=== PATIENT | female | born 1980 | race Caucasian/White ===

== ENCOUNTER 2017-01-07 14:40 | Inpatient (IN) | payer BC ==
[~2017-01-07] VITALS: Ht 175.3 cm; Wt 93.5 kg
--- NOTE | ~2017-01-07 | PN ---
PATIENT'S NAME: IVY RODRIGUEZ [facility] AGE: 36 Y [address] ROOM: [place] [address] LOCATION: GPED ADMIT DATE: 01/07/2017 Progress Notes DISCHARGE DATE: FAMILY PHYSICIAN: MIAH BAUTISTA MD ATTENDING PHYSICIAN: Zia VERDE DATE OF SERVICE: 01/09/2017 ADDENDUM: This patient has been receiving Reglan without difficulty, and she had an extrapyramidal side effect where she had some lateralizing signs which quickly resolved. She was seen by the hospitalist as well where she is entirely normal at this point, and her Reglan has been discontinued. She had been receiving it for several days without untoward reaction. She has been advised not to take this medication again. MD HUONG ELLSWORTH/juana /[id number] d: 01/09/172038 t: 01/14/17 1824, PROGRESS NOTES
--- NOTE | ~2017-01-07 | ER ---
PATIENT'S NAME: IVY RODRIGUEZ [facility] AGE: 36 Y [address] ROOM: [id number] [place], [place] [address] LOCATION: GPED ADMIT DATE: 01/07/2017 ER/Outpatient Report DISCHARGE DATE: FAMILY PHYSICIAN: MIAH BAUTISTA MD ATTENDING PHYSICIAN: Zia GROVES Time of Arrival: 1451 hours. Time of Evaluation/Exam: 1451 hours. CHIEF COMPLAINT: Right lower quadrant abdominal pain. HISTORY OF PRESENT ILLNESS: The patient states she woke up early this morning with right lower quadrant abdominal pain. States that it did wake her up. She reports that she has had problems with cold, cough, and congestion for the past week and was planning to go to the [facility] to have that checked, and had her provider check her abdomen at the same time. She said they did do a bunch of laboratory work and then sent her here for a CT scan. Dr. Groves, the surgeon did call the ER to let us know that she was coming and he was going to see her in the ER. She reports she has been nauseated, has not vomited. Has had chills. Denies any urine frequency or pain with urination. Reports she had a normal bowel movement this morning. Her last period was last week. She states she does have a Mirena. She describes the pain as being a crampy type pain. It is constant, worse when she is up and moving around. ALLERGIES: NO KNOWN ALLERGIES. MEDICATIONS: Levothyroxine. PAST MEDICAL HISTORY: Hypothyroidism. PAST SURGICAL HISTORY: Tonsillectomy. SOCIAL HISTORY: Lives at home with her and children. Denies use of tobacco, alcohol, or drugs. REVIEW OF SYSTEMS: All negative other than those mentioned in the HPI. PATIENT'S NAME: IVY RODRIGUEZ [facility] AGE: 36 Y [address] ROOM: [address] [place], [place] [address] LOCATION: GPED ADMIT DATE: 01/07/2017 ER/Outpatient Report DISCHARGE DATE: FAMILY PHYSICIAN: MIAH BAUTISTA MD ATTENDING PHYSICIAN: Zia GROVES PHYSICAL EXAMINATION: VITAL SIGNS: She weighed 93.5 kg. Blood pressure is 137/75, pulse of 86, respirations are 16, temperature of 99.3, tympanic, and O2 saturation 100% on room air. GENERAL APPEARANCE: She is awake, alert, and oriented x4. SKIN: [place], warm, and dry. RESPIRATORY: Respirations are even and nonlabored. Lung sounds are clear throughout. HEART: Regular rate and rhythm. ABDOMEN: Soft and nondistended. Bowel sounds are present. She is very tender in the right lower quadrant. Some mild tenderness of the umbilical area. EXTREMITIES: She walked in with a steady even gait. EMERGENCY DEPARTMENT COURSE: Dr. Groves did come and evaluate the patient. He is going to admit her for observation. IMPRESSION: Right lower quadrant abdominal pain. PLAN: The patient will be placed on observation for the care of Dr. Groves. She is aware of the plan and is in agreement to it. RIKY WASHINGTON APRN FOR DO HUMBERTO HERNANDEZ/juana /[id number] d: 01/07/17 2321 t: 01/15/17 0903, OUTPATIENT REPORT
--- NOTE | ~2017-01-07 | PN ---
PATIENT'S NAME: IVY RODRIGUEZ [facility] AGE: 36 Y [address] ROOM: [place] [address] LOCATION: GPED ADMIT DATE: 01/07/2017 Progress Notes DISCHARGE DATE: FAMILY PHYSICIAN: MIAH BAUTISTA MD ATTENDING PHYSICIAN: Zia VERDE DATE OF SERVICE: 01/08/2017 This patient had a retrocecal appendicitis. She had an appendectomy today. She is doing generally stable. She is due to void. She is afebrile. Vital signs stable. Her abdomen is soft, quiet. Dressing dry and intact. She is stable and due to void. MD HUONG ELLSWORTH/elizabethl /[id number] d: 01/08/17 1257 t: 01/14/17 1818, PROGRESS NOTES
--- NOTE | ~2017-01-07 | CON ---
PATIENT'S NAME: IVY RODRIGUEZ [facility] AGE: 36 Y [address] ROOM: [place] [address] LOCATION: GPED ADMIT DATE: 01/07/2017 Consultation DISCHARGE DATE: FAMILY PHYSICIAN: MIAH BAUTISTA MD ATTENDING PHYSICIAN: Zia GROVES DATE OF CONSULTATION: 01/09/2017 REFERRING PHYSICIAN: Zia Groves MD CONSULTING PHYSICIAN: Dr. Topete. REASON FOR THE CONSULTATION: Rapid response. HISTORY OF PRESENT ILLNESS: The patient is a previously healthy 36-year-old female who has undergone an appendectomy yesterday. She was doing okay until a few hours ago. She was noted to have some abnormal lip movements as well as garbled speech on the right. She also had some difficulty controlling her oral intake and had leakage of fluid from her right-side. She also endorses some symptomatic discomfort on the right-side of her face, which has now resolved. At this point, she feels fine aside from just a little bit of excitement from the rapid response. She denies chest pain, shortness of breath, nausea, vomiting, palpitations, or diaphoresis, but does have some tremor due to the rapid response. REVIEW OF SYSTEMS: All systems have been reviewed and are negative aside for pertinent positives mentioned above. PAST MEDICAL HISTORY: Hypothyroidism. CURRENT MEDICATIONS: Levothyroxine. SOCIAL HISTORY: The patient denies any toxic habits. FAMILY HISTORY: The patient does not provide any contributing family history. HOME MEDICATIONS: PATIENT'S NAME: IVY RODRIGUEZ [facility] AGE: 36 Y [address] ROOM: [place] [address] LOCATION: GPED ADMIT DATE: 01/07/2017 Consultation DISCHARGE DATE: FAMILY PHYSICIAN: MIAH BAUTISTA MD ATTENDING PHYSICIAN: Zia GROVES Levothyroxine, at this point, she is also getting regular doses of Reglan, and notably did get a dose of Reglan before her symptoms precipitated. PHYSICAL EXAMINATION: VITAL SIGNS: At this point, her vital signs, blood pressure 150/100, heart rate is 86, satting 96% on room air, afebrile, and respirations are 16. GENERAL: Appears as a well-developed, well-nourished, young female, in no significant distress, but does have some tremor from the excitement. NEUROLOGIC: A detailed neurological exam shows absolutely no focal abnormalities. Subjectively, the patient reports that the symptoms have resolved. EYES: Exam shows pupils are equal and reactive to light. LYMPHATIC: Exam shows no cervical lymphadenopathy. ENDOCRINE: Exam shows no thyromegaly. LUNGS: Clear to auscultation. HEART: Rate is regular. No appreciable murmurs, gallops, or rubs. GI: Exam is deferred. : Exam is deferred. VASCULAR: Exam reveals 2+ pedal pulses. SKIN: Warm and dry. PSYCHIATRIC: Reveals slightly excited mood, but appropriate affect and cognition. LABORATORY DATA: Lab results have been reviewed and are unremarkable. IMPRESSION/RECOMMENDATIONS: This is likely an extrapyramidal reaction to Reglan. I am not very concerned about possibility of a cerebrovascular accident given absence of risk factors and a known inciting etiology for this episode. Nevertheless, we will put her on neuro checks for next 8 hours to make sure that the symptoms do not recur. If they do recur, we will do a CAT scan of her head to rule out possible neurologic event. At this point, she would not be a candidate for tPA regardless due to recent surgery. At this point, she is quite anxious and we will give her a small dose of Xanax to help her calm down. Additional management as per primary team. Time dedicated to this patient's consult is 25 minutes. LINA TOPETE MD PATIENT'S NAME: IVY RODRIGUEZ [facility] AGE: 36 Y [address] ROOM: [place] [address] LOCATION: GPED ADMIT DATE: 01/07/2017 Consultation DISCHARGE DATE: FAMILY PHYSICIAN: MIAH BAUTISTA MD ATTENDING PHYSICIAN: Zia GROVES/juana /[id number] d: 01/10/17 0030 t: 01/27/17 0456, CONSULTATION REPORT
--- NOTE | ~2017-01-07 | DS ---
PATIENT'S NAME: JAZ HOLLINGSWORTH [facility] AGE: 36 Y [address] ROOM: [address] [place] [address] LOCATION: GPED ADMIT DATE: 01/07/2017 Discharge Summary DISCHARGE DATE: 01/10/2017 FAMILY PHYSICIAN: Adrian Aguiar MD ATTENDING PHYSICIAN: Zia Groves DIAGNOSIS: Retrocecal appendicitis. SUMMARY: Jaz Hollingsworth is a 36-year-old female, who had a 5-day history of some discomfort in her abdomen worse over the past 2 days. The patient was evaluated with CBC that showed leukocytosis with white blood cell count of 13.4. CT scan showed a borderline dilated appendix up to 9 mm with no contiguous or adjacent inflammation or fluid. Dr. Groves evaluated the patient and recommended observation. She was admitted, kept n.p.o. IV fluids were started. On the morning of January 08, 2017, the patient's pain seemed the same and on examination, he noted localized peritoneal signs in the right lower quadrant. A permit was obtained for an open appendectomy. Mefoxin 2 g IV was given preoperatively. The patient was taken to the operating room for an appendectomy. Please see Dr. Groves's procedure note for specifics. Postoperatively, the patient was allowed sips of water. Dilaudid and Toradol were ordered for pain. Reglan was ordered every 6 hours. The patient continued on Mefoxin for 24 hours. Lovenox was ordered for DVT prophylaxis. The patient was allowed to be up to the chair with assistance. The patient experienced some urinary retention and a Fortune catheter was placed. The patient was advanced a clear liquid diet. Tylenol was ordered for pain along with [place]. Fortune catheter was removed early this morning and the patient is voiding well. She is tolerating diet. She is passing gas. Vital signs are stable. The patient wants to go home. Arrangements are being made for the patient to discharge home today. Instructions include no restrictions on diet, no vigorous activity, or lifting greater than 20 pounds until she is seen back by Dr. Charles in 10-14 days. She was instructed to let us know if she has fever, increased abdominal pain, or diarrhea. DISCHARGE MEDICATIONS: 1. Tylenol 325-650 mg p.o. q.3 hours p.r.n. pain. 2. She was started on Levaquin 500 mg p.o. daily x10 days prior to admission and she can complete this for sinus infection. 3. Levothroid 50 mcg p.o. daily. 4. Multivitamin 1 tablet p.o. q.h.s. 5. Zyrtec 10 mg p.o. daily. 6. Flonase 1 spray in the nose daily p.r.n. 7. Prescription was written for [place] 5/325 one to two p.o. q.4 hours p.r.n. pain, dispensing 30 with no refills. For specifics on day-to-day care, please refer to the hospital chart. PATIENT'S NAME: JAZ HOLLINGSWORTH [facility] AGE: 36 Y [address] ROOM: [address] [address] LOCATION: GPED ADMIT DATE: 01/07/2017 Discharge Summary DISCHARGE DATE: 01/10/2017 FAMILY PHYSICIAN: Adrian Aguiar MD ATTENDING PHYSICIAN: Zia Groves LAYA WATSON PA-C FOR MD TRACI SIBLEYK/juana /[id number] d: 01/11/17 0502 t: 01/22/17 1454, DISCHARGE SUMMARY
--- NOTE | ~2017-01-07 | OR ---
PATIENT'S NAME: IVY RODRIGUEZ [facility] AGE: 36 Y [address] ROOM: [address] [address] LOCATION: GPED ADMIT DATE: 01/07/2017 OR/Procedure Report DISCHARGE DATE: FAMILY PHYSICIAN: MIAH BAUTISTA MD ATTENDING PHYSICIAN: Zia GROVES SURGEON: Zia Groves MD PATIENT CARE DIRECTOR: DATE OF PROCEDURE: 01/08/2017 PREOPERATIVE DIAGNOSIS: Abdominal pain, likely appendicitis, retrocecal. POSTOPERATIVE DIAGNOSIS: Retrocecal appendicitis. PROCEDURES PERFORMED: 1. Exploration. 2. Appendectomy. ANESTHESIA: General endotracheal. INDICATIONS FOR OPERATION: This is a patient who presented yesterday from the clinic with a several-day history of diffuse abdominal pain which seemed to localize in the right lower quadrant. She had a low-grade fever and leukocytosis, but her CAT scan was indeterminate in that it was a possible borderline dilated appendix, but there was no stranding, inflammatory changes, etc. She was observed overnight where, on reexamination, she had localized peritoneal signs in the right lower quadrant. She was given perioperative parenteral antibiotics and sequential compression boots and taken to the operating room. DESCRIPTION OF PROCEDURE: The patient was brought to the operating room. After satisfactory general endotracheal anesthesia, her abdomen was prepped and draped in the usual sterile fashion. 0.5% Marcaine with epinephrine was infiltrated for better postoperative analgesia. Cody-Bryan incision was made. Skin and subcutaneous tissue were divided. Hemostasis throughout the procedure was obtained with electrocautery and tie ligation with heavy silk. External oblique was opened in the direction of its fibers. The internal oblique, transversus abdominis, and transversalis fascia were split in a muscle-splitting approach. The peritoneum was then opened. The cecum was delivered. It was a retrocecal appendicitis. Once mobilizing the retrocecal appendix, the mesoappendix was clamped, divided, and tied with heavy silk. The appendiceal artery was individually clamped, divided, and tied with heavy silk. A pursestring suture of 3-0 silk was placed at the base of the appendix in the cecum. The appendix was crushed with a crush clamp and amputated. Its tip was touched with cautery to prevent mucocele. The appendiceal stump was invaginated. The pursestring suture was secured. Several interrupted 3-0 PATIENT'S NAME: IVY RODRIGUEZ [facility] AGE: 36 Y [address] ROOM: [address] [place] [address] LOCATION: [facility] ADMIT DATE: 01/07/2017 OR/Procedure Report DISCHARGE DATE: FAMILY PHYSICIAN: MIAH BAUTISTA MD ATTENDING PHYSICIAN: Zia GROVES intestinal sutures were placed to secure the area. At this point, the small bowel was run. There was no Meckel diverticulum. Also, the right ovary was examined as well as the fallopian tube and the uterus by visualization and were satisfactory. Copious irrigation with antibiotic irrigant was performed. The intra-abdominal contents were placed back into their anatomical positions. The abdomen was then closed in the following fashion: The peritoneum was closed with a running 0 Vicryl suture. The transversus abdominis, transversalis fascia, and internal oblique were gently reapproximated with 0 Vicryl suture. The external oblique was closed with an 0 Vicryl suture. Soft tissues were irrigated and gently reapproximated with interrupted 3-0 Vicryl sutures. Skin was closed with 4-0 Vicryl subcuticular closure. Steri-Strips, Telfa pads, and pressure dressing were applied to the wound. The patient tolerated the procedure satisfactorily. ESTIMATED BLOOD LOSS: Minimal. MD HUONG ELLSWORTH/juana /[id number] d: 01/08/17 1149 t: 01/08/17 1352, OPERATIVE SUMMARY
--- NOTE | ~2017-01-07 | HP ---
PATIENT'S NAME: IVY RODRIGUEZ [facility] AGE: 36 Y [address] ROOM: [place] [address] LOCATION: [facility] ADMIT DATE: 01/07/2017 History & Physical DISCHARGE DATE: FAMILY PHYSICIAN: Adrian Aguiar MD ATTENDING PHYSICIAN: Warren Gandara DATE OF SERVICE: HISTORY OF PRESENT ILLNESS: This is a 36-year-old female whom I was called by [facility] in the [facility] where she has had 5 days of discomfort in her abdomen, but primarily 2 days which were most marked. She said she had pain in both lower quadrants, more so on the right side. She has had emesis, but without productivity. She said she has had cold sweats, but no definitive fever. She has had no diarrhea. Her last menstrual period was recently. She is passing gas. She had a normal bowel movement this morning. She is not anorexic. She has no genitourinary symptomatology. She has been fighting a cold with congestion. She was sent for labs by Any, and lab results showed leukocytosis of 13.4 with a left shift. Her BMP was generally unremarkable. Her urinalysis showed trace protein, 5 to 10 white cells, 5 to 10 epithelial cells, otherwise unremarkable. She had a CT scan, which I reviewed personally with the radiologist, which showed a very borderline dilated appendix up to 9 mm, but no contiguous or adjacent inflammation or fluid collection at all. No streaking at the mesentery. They concluded they could not exclude early appendicitis, but it is borderline dilated. MEDICATIONS: Include Thyroid for hypothyroidism. ALLERGIES: NONE. OPERATIONS: Tonsillectomy. MEDICAL PROBLEMS: Hypothyroid. REVIEW OF SYSTEMS: Significant for emesis without production, abdominal pain, and mild decreased appetite. Genitourinary review of systems does not reveal any significant findings. The remainder of the review of systems, 14-point, is surgically noncontributory. FAMILY HISTORY: PATIENT'S NAME: IVY RODRIGUEZ [facility] AGE: 36 Y [address] ROOM: [place] [address] LOCATION: [facility] ADMIT DATE: 01/07/2017 History & Physical DISCHARGE DATE: FAMILY PHYSICIAN: Adrian Aguiar MD ATTENDING PHYSICIAN: Nichol,Warren J Surgically noncontributory. SOCIAL HISTORY: Surgically noncontributory. She does not smoke cigarettes. PHYSICAL EXAMINATION: VITAL SIGNS: She has a low-grade fever of 99. Vital signs are stable. GENERAL: She does not look toxic. SKIN: Turgor is normal. HEENT: Unremarkable. CHEST: Clear bilateral breath sounds. HEART: No murmurs or gallops. ABDOMEN: Soft. She has mild tenderness to moderate and deep palpation in the right lower quadrant. No rebound. No masses or organomegaly. Bowel sounds are present. No hernias. EXTREMITIES: Perfused. IMPRESSION: Possible early appendicitis. PLAN: Intravenous hydration. Close observation. Her subsequent management will be determined by her clinical course. MD HUONG ELLSWORTH/juana /[id number] D: [id number] T: [id number] HISTORY & PHYSICAL
--- NOTE | ~2017-01-07 | PN ---
PATIENT'S NAME: IVY RODRIGUEZ [facility] AGE: 36 Y [address] ROOM: [address] [place] [id number] LOCATION: GPED ADMIT DATE: 01/07/2017 Progress Notes DISCHARGE DATE: FAMILY PHYSICIAN: MIAH BAUTISTA MD ATTENDING PHYSICIAN: Zia VERDE DATE OF SERVICE: 01/09/2017 HISTORY OF PRESENT ILLNESS: This patient underwent an appendectomy for retrocecal appendicitis. She is doing well. She did have overflow incontinence and has a Fortune catheter in. Otherwise, her laboratory values are reasonable today. She does have slight leukocytosis, which is not surprising. H and H are otherwise unremarkable. She is tolerating her surgery well. The remainder of the review of systems is surgically noncontributory. PHYSICAL EXAMINATION: VITAL SIGNS: She is afebrile. Vital signs stable. GENERAL: Looks well. CHEST: Clear. ABDOMEN: Soft, with bowel sounds. The wound is fine. PLAN: Clear liquids. Ambulation. Maintain the Fortune today because it has not been 24 hours since it has been placed, and she had a significant amount of urine in her bladder to allow her detrusor muscle to contract. Plan is tomorrow to advance her diet, take out her Fortune first thing in the morning, and advance her diet. If she does satisfactory, she might be able to go home tomorrow night. MD HUONG ELLSWORTH/juana /[id number] d: 01/09/17 1135 t: 01/14/17 1821, PROGRESS NOTES
[2017-01-07] MEDS ORDERED: LEVAQUIN500 MG PO (17:56)
[2017-01-07] MEDS ORDERED: MULTIPLE VITAM1 EACH PO (17:57)
[2017-01-07] MEDS ORDERED: ZYRTEC10 MG PO (17:57)
[2017-01-07] MEDS ORDERED: LEVOTHROID (SY50 MCG PO (17:57)
[2017-01-07] MEDS ORDERED: FLONASE 50 MCG/16 GM NOSE (17:58)
[2017-01-07 21:17] LABS: COLOR URINE YELLOW (YELLOW); TURBIDITY URINE CLEAR (CLEAR)
[2017-01-07 21:18] LABS: BACTERIA URINE RARE (NEGATIVE); BILIRUBIN URINE NEGATIVE (NEGATIVE); BLOOD URINE 50 /UL (NEGATIVE); GLUCOSE URINE NEGATIVE (NEGATIVE); HYALINE CAST URINE 0-2 #/LPF (NEGATIVE); KETONE URINE 5 mg/dL (NEGATIVE); LEUKOCYTES URINE 100 /UL (NEGATIVE); NITRITE URINE NEGATIVE (NEGATIVE); PH URINE 4.5 (4.0-8.0); PROTEIN URINE NEGATIVE (NEGATIVE); UROBILINOGEN URINE NORMAL (NORMAL)
--- NOTE | 2017-01-07 21:43 | NUR ---
this is a 36 year old female admitted for right side abdominal pain with possible lap appendectomy scheduled for tuesday morning. pt is a/o x3 c/o pain that ranges from 3-6 as the pain comes and goes. onlymedical hx of tonselectomy, NKMA. pt went to family dr r/t sinus infection but had started to have the abdominal pain during the night and was sent to the hospital for a ct scan and was admitted by the surgeon for observation.
--- NOTE | 2017-01-08 03:45 | NUR ---
Significant Event:PT IS A/O X3/ PT IS NPO FOR POSSIBLE LAP APPY THIS AM TENTATIVELY @ 0900. DR. VERDE SURGEON WILL MAKE FINAL DETERMINATION THIS AM. NO PAIN MEDS ORDERED. VSS, AFEBRILE. C/O PAIN TO R LOWER QUAD 3-4 WHEN RESTING BUT WILL HAVE SHARP JABS THAT WILL GO TO 5-6 MORE W/ MOVEMENT. IV TO L HAND HAS D5 1/2 NSw/ 20 KCL @ 150. NO CONSENTS AT THIS TIME. Follow up:POSSIBLE LAP APPY TODAY
[2017-01-08 06:18] LABS: BASOPHIL % 0.5 %; EOSINOPHIL # 0.1 K/uL (0.0-0.5); EOSINOPHIL % 2.1 %; HEMOGLOBIN 13.3 g/dL (11.0-15.0); IMMATURE GRANULOCYTE % 0.3 %; LYMPHOCYTE # 2.3 K/uL (0.8-4.0); LYMPHOCYTE % 35.6 %; MCH 29.1 pg (27.0-34.0); MCHC 33.3 gm/dL (32.0-36.5); MCV 87.5 fl (83.0-98.0); MONOCYTE # 0.6 K/uL (0.0-1.0); MONOCYTE % 9.4 %; NEUTROPHIL # (ANC) 3.4 K/uL (1.8-7.8); NEUTROPHIL % 52.1 %; NRBC % 0 /100WBC (0-0.00); PLATELET COUNT 229 K/uL (150-450); RBC 4.57 M/uL (3.50-5.50); RDW-CV 12.6 % (11.9-14.6); WBC 6.5 K/uL (4.0-11.0)
[2017-01-08 06:28] LABS: INR - (THERAPEUTIC) 1.1 (0.9-1.1); PROTIME 11.1 SECONDS (9.6-11.1); PTT 30 SECONDS (25-32)
[2017-01-08 06:33] LABS: ALBUMIN 3.4 gm/dL (3.5-5.0); ALK PHOS 77 IU/L (33-138); ALT 30 IU/L (12-78); AST 15 IU/L (10-40); BLOOD UREA NITROGEN 9 mg/dL (6-24); CHLORIDE 110 mMol/L (96-110); CO2 26 mMol/L (22-32); ESTIMATED GFR (MDRD EQUATION) > 60; SODIUM 142 mMol/L (135-145); TOTAL BILIRUBIN 0.6 mg/dL (0.0-1.5); TOTAL PROTEIN 7.1 g/dL (6.0-8.4)
--- NOTE | 2017-01-08 15:13 | NUR ---
D: Patient vital signs stable patient afebrile. Patient returned from PACU at 1000 post open appendectomy. Dressing to right lower abdomen dry and intact. Patient did have toradol last at 1133 for abdominal pain. Dilaudid 0.5mg last at 0630 this am. Patient has been up to the bathroom x 2 and up to chair x 1. IV infusing without difficulty.
[2017-01-09 06:00] LABS: BASOPHIL % 0.2 %; EOSINOPHIL % 0.3 %; HEMATOCRIT 33.8 % (33.0-46.0); HEMOGLOBIN 11.3 g/dL (11.0-15.0); IMMATURE GRANULOCYTE % 0.2 %; LYMPHOCYTE # 2.3 K/uL (0.8-4.0); MCH 29.3 pg (27.0-34.0); MCHC 33.4 gm/dL (32.0-36.5); MCV 87.6 fl (83.0-98.0); MONOCYTE # 0.9 K/uL (0.0-1.0); MONOCYTE % 6.9 %; MPV 10.3 fl (9.4-12.4); NEUTROPHIL # (ANC) 9.6 K/uL (1.8-7.8); NEUTROPHIL % 74.4 %; NRBC % 0 /100WBC (0-0.00); PLATELET COUNT 211 K/uL (150-450); RBC 3.86 M/uL (3.50-5.50); RDW-CV 12.5 % (11.9-14.6); WBC 12.9 K/uL (4.0-11.0)
[2017-01-09 06:11] LABS: INR - (THERAPEUTIC) 1.1 (0.9-1.1); PROTIME 11.4 SECONDS (9.6-11.1); PTT 27 SECONDS (25-32)
[2017-01-09 06:16] LABS: ALBUMIN 2.8 gm/dL (3.5-5.0); ALK PHOS 61 IU/L (33-138); ALT 26 IU/L (12-78); ANION GAP 13.9 (10.0-19.0); AST 13 IU/L (10-40); BLOOD UREA NITROGEN 9 mg/dL (6-24); CALCIUM 7.9 mg/dL (8.5-10.5); CHLORIDE 110 mMol/L (96-110); CO2 23 mMol/L (22-32); CREATININE 0.9 mg/dL (0.5-1.1); ESTIMATED GFR (MDRD EQUATION) > 60; POTASSIUM 3.9 mMol/L (3.7-5.1); SODIUM 143 mMol/L (135-145); TOTAL PROTEIN 6.1 g/dL (6.0-8.4)
[2017-01-09 06:20] LABS: TOTAL BILIRUBIN 0.4 mg/dL (0.0-1.5)
--- NOTE | 2017-01-09 07:15 | NUR ---
Significant Event: AAOX4. CLEAR LIQUID DIET. PIV L) HAND IVF INFUSING. PT COMPLAINED OF FEELING LIKE HER BLADDER WOULDN'T FULLY EMPTY, POST VOID BLADDER SCAN: 718 ML. NOTIFIED, GONZALEZ CATHETER PLACED AT 2100 WITH IMMEDIATE OUTPUT OF 725 ML. PT STATED IT HELPED HER INCISION PAIN. AMBULATED IN [place] X2; TOLERATED WELL. TORADOL IVP ADMINISTERED X2. NEW ORDER FOR NORCO 10/325 PO Q4 HOURS PRN; TYLENOL 325 1-2 TABS PRN. 1290 ML/IV. 1100 OUT/GONZALEZ CATHETER. Follow up: URINE OUTPUT, PAIN, AMBULATION
--- NOTE | 2017-01-09 14:31 | NUR ---
D: Patient vital signs stable patient afebrile. Patient feeling much better today up in halls walking x three tolerating excellent. Fortune catheter remains in place as physician ordered. Patient was up to shower. Dressing to right lower abdomen approximated with steri strips intact. Patient bowel sounds present with patient stating she has had "a little" flatus. Tylenol x 2 last at 1415 and toradol x 1 at 0812 with partial relief.
--- NOTE | 2017-01-10 05:17 | NUR ---
Significant Event: DURING "TAG" PT STATED HER MOUTH/TONGUE "FELT FUNNY". NEURO ASSESSMENT REVEALED EQUAL STRENGTH TO ALL 4 EXTREMETIES, SLIGHT DEVIATION TO TONGUE WHEN STUCK OUT, SMILE ASYMETRICAL, UNABLE TO DRINK FROM STRAW WITHOUT LIQUID DRIBBLING FROM MOUTH. RAPID RESPONSE CALLED AT 1832. DR. TOPETE STATED IT WAS MOST LIKEYLY SIDE EFFECTS FROM PT'S REGLAN. REGLAN D/C'D AND XANAX ADMINISTERED DUE TO PT'S ANXIETY FROM THE RAPID. PT BACK TO BASELINE WITHIN [address] VERDE NOTIFIED. NO OTHER ADVERSE EVENTS DURING SHIFT. NO PRN'S ADMINISTERED DURING SHIFT. PT PAIN 01/24 AND DIDN'T NEED MEDS FOR IT. GONZALEZ CATHETER TO BE D/C'D THIS AM. PT ADVANCED TO SOFT REGULAR DIET. 1390/IV. 600 PO. 1675 OUT. NO BM'S. Follow up:
[2017-01-10 06:46] LABS: HEMATOCRIT 31.7 % (33.0-46.0); HEMOGLOBIN 10.3 g/dL (11.0-15.0); MCHC 32.5 gm/dL (32.0-36.5); MCV 89.3 fl (83.0-98.0); MPV 10.5 fl (9.4-12.4); PLATELET COUNT 186 K/uL (150-450); RBC 3.55 M/uL (3.50-5.50); RDW-CV 12.6 % (11.9-14.6); WBC 6.5 K/uL (4.0-11.0)
[2017-01-10 07:01] LABS: ALBUMIN 2.9 gm/dL (3.5-5.0); ALK PHOS 57 IU/L (33-138); ALT 18 IU/L (12-78); AST 14 IU/L (10-40); BLOOD UREA NITROGEN 7 mg/dL (6-24); CALCIUM 7.8 mg/dL (8.5-10.5); CHLORIDE 111 mMol/L (96-110); CO2 25 mMol/L (22-32); CREATININE 0.9 mg/dL (0.5-1.1); ESTIMATED GFR (MDRD EQUATION) > 60; SODIUM 142 mMol/L (135-145); TOTAL PROTEIN 5.8 g/dL (6.0-8.4)
[2017-01-10 07:02] LABS: TOTAL BILIRUBIN 0.5 mg/dL (0.0-1.5)
[2017-01-10 07:13] LABS: ABSOLUTE NEUTROPHIL CT (ANC) 3.8 K/uL (1.8-7.8); BANDED NEUTROPHIL # 0.3 K/uL (0.0-0.1); BANDED NEUTROPHILS % 4 %; LYMPHOCYTE # 2.1 K/uL (0.8-4.0); LYMPHOCYTE % 33 %; MONOCYTE # 0.3 K/uL (0.0-1.0); SEGMENTED NEUTROPHIL # 3.5 K/uL (1.8-7.8); SEGMENTED NEUTROPHIL % 54 %
--- NOTE | 2017-01-10 07:35 | NUR ---
DURING "TAG" WITH REINA RON (CHARGE NURSE), PT STATED HER MOUTH/TONGUE "FELT FUNNY" AND IT BEGAN AT 1700 WHEN REGLAN WAS ADMINISTERED. FAMILY WAS IN ROOM AND STATED HER SPEECH HAD NOT SOUNDED OFF OR ABNORMAL. NEURO ASSESSMENT REVEALED EQUAL STRENGTH TO ALL 4 EXTREMETIES, SLIGHT DEVIATION TO TONGUE WHEN STUCK OUT, SMILE ASYMETRICAL, UNABLE TO DRINK FROM STRAW WITHOUT LIQUID DRIBBLING FROM MOUTH, ABNORMAL FACIAL GRIMACING. RAPID RESPONSE CALLED AT 1832. ICU NURSE, ROUGH CARPENTER, RESPIRATORY THERAPIST, PHYSICIAN ARRIVED PROMPTLY. NURSES AND DR. TOPETE PERFORMED A [facility] NEURO CHECK AND STATED PT HAD EXTRAPYRAMIDAL SYMPTOMS DUE TO REGLAN THERAPY. REGLAN WAS DISCONTINUED AND XANAX ADMINISTERED DUE TO ANXIETY OF PATIENT FROM EVENT. PT BACK TO BASELINE WITHIN [address] VERDE NOTIFIED OF RAPID AND PT'S STATUS.
--- NOTE | 2017-01-10 12:46 | NUR ---
Met with patient at bedside today. Introduced myself and the role of the CM department. Patient has no discharge needs. She will discharge to home with her and children. 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
[2017-01-10] MEDS ORDERED: TYLENOL325 MG PO (14:36)
[2017-01-10] MEDS ORDERED: NORCO 5-325 TA1 EACH PO (14:37)
== END 2017-01-10 15:20 | disposition disaster alternative care site (69) | DRG 343 ==
LOC: GMED 14:40 → GPED 16:16
PROVIDERS: ADMIT Surgery
PROC: 0DTJ0ZZ Resection of Appendix, Open Approach (ICD-10-PCS; principal; 2017-01-08)
DX: K35.80 Unspecified acute appendicitis (principal); E03.9 Hypothyroidism, unspecified; N39.490 Overflow incontinence; F41.9 Anxiety disorder, unspecified
CPT/HCPCS: C9113; J0694; J1170; J1650; J1885; J2550; J2765; J3010; J3480; J7040; J7120; Q9967

== ENCOUNTER → 2017-01-07 | Outpatient (CLI) | payer BC ==
[~2017-01-07] MED LIST: FLONASE 50 MCG/16 GM NOSE; LEVAQUIN500 MG PO; LEVOTHROID (SY50 MCG PO; MULTIPLE VITAM1 EACH PO; NORCO 5-325 TA1 EACH PO; TYLENOL325 MG PO; ZYRTEC10 MG PO
== END | disposition disaster alternative care site (69) ==
LOC: GRAD 12:03
DX: R10.31 Right lower quadrant pain (principal); N28.9 Disorder of kidney and ureter, unspecified
CPT/HCPCS: Q9967